=== PATIENT | male | born 2000 | race Caucasian/White ===

== ENCOUNTER 2022-06-09 18:16 | Emergency (ER) | payer BC ==
[~2022-06-09] VITALS: Ht 177.8 cm; Wt 95.5 kg
[~2022-06-09 18:16] MED LIST: NO HOME MEDICATIONS
[2022-06-09] MEDS ORDERED: DOXYCYCLINE 10100 MG PO (19:11)
[2022-06-09 19:29] VITALS: BP 124/78; PULSE 16
== END 2022-06-09 19:24 | disposition home or self-care (01) ==
LOC: COL.ER 18:16
DX: N45.1 Epididymitis (principal); Z28.310 Unvaccinated for COVID-19